=== PATIENT | female | born 1945 | race Caucasian/White ===

== ENCOUNTER → 2019-07-07 12:40 | Outpatient (BNVA) | payer MEDICARE, OTHER, SELFPAY | PROVIDERS: Family Provider Family Medicine; PCP Family Medicine; Visit Provider Urology | DX: N30.10 Interstitial cystitis (chronic) without hematuria (principal) | CPT/HCPCS: 81001 ==

== ENCOUNTER → 2019-07-14 14:01 | Outpatient (BNVA) | payer MEDICARE, OTHER, SELFPAY | PROVIDERS: Family Provider Family Medicine; PCP Family Medicine; Visit Provider Nurse Practitioner Family | DX: N30.10 Interstitial cystitis (chronic) without hematuria (principal) | CPT/HCPCS: 81001; 87086 ==

== ENCOUNTER → 2019-07-21 10:06 | Outpatient (BNVA) | payer MEDICARE, OTHER, SELFPAY | PROVIDERS: Family Provider Family Medicine; PCP Family Medicine; Visit Provider Urology | DX: N30.10 Interstitial cystitis (chronic) without hematuria (principal) | CPT/HCPCS: 81001 ==

== ENCOUNTER 2019-07-28 10:37 | Day surgery (SDC) | payer MEDICARE, OTHER, SELFPAY ==
[2019-07-25 12:03] VITALS: BMI 29.0
[2019-07-28] VITALS (7 sets, daily range): BP systolic 110–150; BP diastolic 60–76; PULSE 56–62; RESP 16–20; TEMP 36.4–36.9; O2SAT 94–98
[2019-07-28] MEDS: sodium chloride 0.9% 1,000 ML 30 ML IV (11:16)
--- NOTE | 2019-07-28 11:22 | ANES.PREANE2 ---
Pre-Anesthetic Assessment Pre-Anesthetic Assessment: Height/Weight: Height 1.73 m Weight 86.636 kg Temp Pulse Resp BP Pulse Ox 98.4 F 57 L 18 139/74 96 07/28/19 10:59 07/28/19 10:59 07/28/19 10:59 07/28/19 10:59 07/28/19 10:59 Preop Diagnosis: Interstitial cystitis Proposed Procedure: Operation Date: 07/28/19 12:00 Proposed Procedures p Cystoscopy N30.10(Not Applicable) - Cristino Puente MD s Bladder Hydrodistention(Not Applicable) - Cristino Puente MD Was Beta Liana taken within 24 hours: Yes Last intake: Intake Last Liquid Date 07/27/19 Last Liquid Time 18:00 Last Solid Date 07/27/19 Last Solid Time 18:00 Social: Social History: No alcohol and No tobacco Exam: Pre-Anes Outpt Exam: alert, oriented x 3, clear to auscultation bilaterally and regular rate & rhythm Airway: Submandibular: WNL Cervical ROM: WNL MP: 2 Dentition: Other (very poor dentation) History/ROS: No significant history except as noted Pulmonary: Pulmonary: Sleep apnea : : None reported Hepatic: Hepatic: None reported GI: GI: None reported Metabolic: Metabolic: Hyperlipidemia Musc/skel: Musc/skel: Lower Back Pain and OA/DJD Neuropsych: Neuropsych: Anxiety and Depression Anesthetic Plan: ASA status: 3 Anesthesia: Anesthesia Evaluation and General Risk of > 500 ml blood loss (7ml/kg in children): No Meds/Allergies Current Medications: Current Medications Generic Name Dose Route Start Last Admin Trade Name Freq PRN Reason Stop Dose Admin Sodium Chloride 1,000 mls @ 30 ml s/hr 07/28/19 09:30 07/28/19 11:16 Sodium Chloride 0.9% IV 07/29/19 09:29 30 mls/hr .Q24H LIO Administration PFSH Anesthesia PFSH: Medical History Abnormal collection of fluid in uterine cavity Chronic interstitial cystitis Other urethral stricture, female Pelvic and perineal pain Sleep apnea Surgical History S/P bladder repair S/P hysterectomy Family History Mother , at age 93 Cancer Breast cancer Colon cancer Father , 45 Cancer Stomach cancer Social History Smoking and tobacco status: never smoked Alcohol intake: never Marital status: Current occupational status: retired Data Anesthesia Cardiac Studies: No Data to Display
--- NOTE | 2019-07-28 12:31 | W.PM.OPSUD ---
Surgery/Procedure H&P Update DATE OF PROCEDURE: July 28, 2019 DATE H&P PERFORMED: 07/21/19 H&P UPDATE INFORMATION: No changes to prior documentation PREOP DIAGNOSIS: Interstitial cystitis PRIMARY INDICATION FOR PROCEDURE: Refractory interstitial cystitis. PLANNED PROCEDURE: Operation Date: 07/28/19 12:00 Proposed Procedures p Cystoscopy N30.10(Not Applicable) - Cristino Puente MD s Bladder Hydrodistention(Not Applicable) - Cristino Puente MD
--- NOTE | 2019-07-28 12:33 | PM.OP ---
Operative Report Date of procedure: July 28, 2019 Pre-op Diagnosis: Interstitial cystitis Post-op diagnosis: same Procedure Done: Cystoscopy, hydrodistention of the bladder Bladder instillation therapy Pathology: none sent Surgeon: Kwame Anesthesia: General Estimated blood loss: Minimal Urine output: Not measured Condition: stable Disposition: PACU Brief History: Mrs. Reich is a very pleasant 73-year-old white female with a longstanding history of interstitial cystitis previously treated at [facility] by Dr. Valdovinos. [place] that hydrodistention was probably the most symptomatically relieving procedure and treatment that she has had. She did see benefit from ELMIRON but she quit it due to hair loss. Trial of bladder instillation therapy was conducted in my office with some improvement but not enough to be satisfied and for that reason she has requested hydrodistention of her bladder. She continues to decline Elmiron. Procedure: After routine preoperative evaluation examination and obtaining of informed consent she was taken to the operating suite on 07/28/2019 where general anesthesia was administered without difficulty after appropriate timeout was performed, SCDs confirmed to be functioning, preoperative antibiotics administered, beta-amirah protocol confirmed. Prepped and draped in usual sterile fashion in dorsolithotomy position pain careful attention to avoiding pressure points. 21 Thai cystoscope with 30 degree lens was introduced to the urethral meatus and advanced into the bladder under videoscopy. Bladder was systematically examined with both 30 and 70 degree lenses. No gross abnormality was identified. Bladder was drained. With a [address] the bladder was hydrodistended to 50 cm of water pressure for 5- 8 minutes. The bladder was then drained and the procedure repeated. Post distention findings: Multiple glomerulations throughout the bladder. There was one area of mild mucosal abrasion that required pinpoint fulguration for hemostasis. This was located near the previous scar on the posterior bladder wall well away from the orifices. Instillation therapy with Solu-Cortef, heparin, Marcaine, lidocaine performed after draining the bladder. Procedure completed. She tolerated procedure well without complications and was awakened in the operating room and returned to recovery in stable condition.
[2019-07-28] MEDS: levofloxacin-dextrose 5 % 500 MG/100 ML PREMIX 100 MG IV (12:35)
[2019-07-28] MEDS: lidocaine 1% INJ 50 mL 30 ML INJECTION (13:04)
[2019-07-28] MEDS: heparin, porcine 1,000 unit/mL INJ 10 mL 10000 UNIT IRRIGATION (13:04)
[2019-07-28] MEDS: triamcinolone 40 mg/mL SDV XX (13:04)
--- NOTE | 2019-07-28 13:27 | SUR.PHASEI ---
1321 PT TO PACU MASK TO FACE , BUT DR ROJAS AT BEDSIDE AND MASK REMOVED SATS 97% ON RA. GOOD RESP EFFORT, PT USING KLEENEX TO BLOW NOSE, NO DISTRESS NOTED.
[2019-07-28] MEDS: TRAMadol 50 mg Tablet PO (14:08)
== END 2019-07-28 14:29 | disposition home or self-care (01) ==
PROVIDERS: Family Provider Family Medicine; PCP Family Medicine; Visit Provider Urology
PROC: 0TJB8ZZ Inspection of Bladder, Via Natural or Artificial Opening Endoscopic (ICD-10-PCS; CPT 52000; principal; 2019-07-28 12:00)
PROC: 0T7B7ZZ Dilation of Bladder, Via Natural or Artificial Opening (ICD-10-PCS; CPT 52260; 2019-07-28 12:00)
DX: N30.10 Interstitial cystitis (chronic) without hematuria (principal); Z79.82 Long term (current) use of aspirin; G47.30 Sleep apnea, unspecified; E78.5 Hyperlipidemia, unspecified; M19.90 Unspecified osteoarthritis, unspecified site
CPT/HCPCS: 52260; 12345; J0330; J1100; J1644; J1956; J2001; J2405; J2704; J3010; J3301; J3490; J7030

== ENCOUNTER 2020-12-31 08:54 | Outpatient (CLI) | payer MEDICARE, OTHER, SELFPAY ==
--- NOTE | 2020-12-31 09:10 | XR_ITS ---
WS: [id number] Chest 2 views, 12/31/2020 Clinical Data: VIRAL ILLNESS Comparison: PA and lateral chest, 12/10/2015. Findings: No nodules, masses or effusions are seen. The heart is normal. The pulmonary vascularity is not increased. No pneumonia or pneumothorax is seen. The aortic arch shows mild tortuosity. XR/XR chest 2V* [id number] Impression: Atherosclerosis.
== END 2020-12-31 08:55 | disposition home or self-care (01) ==
PROVIDERS: PCP Nurse Practitioner Family; Visit Provider Nurse Practitioner Family
DX: B34.9 Viral infection, unspecified (principal); I70.90 Unspecified atherosclerosis
CPT/HCPCS: 71046

== ENCOUNTER 2021-01-10 13:30 | Outpatient (CLI) | payer MEDICARE, OTHER, SELFPAY ==
--- NOTE | 2021-01-10 13:36 | XR_ITS ---
WS: [id number] Chest 2 views, 01/10/2021 Clinical Data: VIRAL ILLNESS Comparison: PA and lateral chest, 12/31/2020. Findings: No nodules, masses or effusions are seen. The heart is normal. The pulmonary vascularity is not increased. No pneumonia or pneumothorax is seen. The aortic arch and descending aorta show minim al calcification and tortuosity. There is a small ring marker overlying the midportion of the chest. There are clips in the upper abdomen from a cholecystectomy. XR/XR chest 2V* [id number] Impression: Atherosclerosis.
== END 2021-01-10 13:31 | disposition home or self-care (01) ==
PROVIDERS: PCP Nurse Practitioner Family; Visit Provider Nurse Practitioner Family
DX: B34.9 Viral infection, unspecified (principal); I70.90 Unspecified atherosclerosis
CPT/HCPCS: 71046

== ENCOUNTER → 2021-07-06 11:45 | Outpatient (BNVA) | payer MEDICARE, OTHER, SELFPAY | PROVIDERS: PCP Nurse Practitioner Family; Visit Provider Family Medicine | DX: G89.29 Other chronic pain (principal); I10 Essential (primary) hypertension; K21.9 Gastro-esophageal reflux disease without esophagitis; M54.9 Dorsalgia, unspecified; R73.9 Hyperglycemia, unspecified; Z12.31 Encounter for screening mammogram for malignant neoplasm of breast; Z12.11 Encounter for screening for malignant neoplasm of colon; N30.10 Interstitial cystitis (chronic) without hematuria; Z80.0 Family history of malignant neoplasm of digestive organs; Z76.89 Persons encountering health services in other specified circumstances | CPT/HCPCS: 80053; 80061; 81003; 82043; 83036; 84443; 85025; 85651 ==

== ENCOUNTER → 2021-08-12 11:21 | Outpatient (BNVA) | payer MEDICARE, OTHER, SELFPAY | PROVIDERS: PCP Nurse Practitioner Family; Visit Provider Surgery | DX: Z20.822 Contact with and (suspected) exposure to COVID-19 (principal); Z11.52 Encounter for screening for COVID-19 | CPT/HCPCS: 87635 ==

== ENCOUNTER 2021-08-17 07:36 | Day surgery (SDC) | payer MEDICARE, OTHER, SELFPAY ==
[2021-08-12 10:02] VITALS: BMI 29.5
--- NOTE | 2021-08-17 08:00 | P.ANESASSM_ITS ---
Pre-Anesthetic Assessment Height/Weight: Height 1.73 m Weight 87.997 kg Preop Diagnosis: diagnostic Operation Date: 08/17/21 09:00 Proposed Procedures p EGD 02590/30193/z80.0(Not Applicable) - Pablo Gracia MD s Colonoscopy(Not Applicable) - Pablo Gracia MD Familial anesthetic complications: None Was Beta Liana taken within 24 hours: N/A Last intake: 08/16/2021 Social No alcohol and No tobacco Exam alert, oriented x 3 and clear to auscultation bilaterally Irregular rate Airway Submandibular: within normal limits Cervical ROM: within normal limits Mallampati: Class III Dentition: chipped Pulmonary Sleep Apnea (Does not use CPAP) CV/HEM Atrial Fibrillation and Hypertension Chronic cystitis Hepatic None reported GI Diverticulitis Metabolic None reported Musc/skel None reported Neuropsych None reported Anesthetic Plan ASA status: 3 (75 year old female with hx of atrial fibrillation, CAYLA non compliant with CPAP, chronic cystitis, and HTN ) Anesthesia: Anesthesia Evaluation, General and MAC Other: I discussed with the patient risks, goals, and benefits of MAC and general anesthesia. We discussed spectrum of MAC anesthesia including conversion to general as well as possibility of recall of intraoperative stimuli including discomfort/pain. Patient agrees to proceed with MAC. Risk of > 500 ml blood loss (7ml/kg in children): No Other Pertinent Information Last dose Apixaban 08/10/2021 per patient. Medications/Allergies Home Medications Medication Instructions Recorded Confirmed Last Taken Type aspirin 81 mg tablet,delayed 81 mg PO DAILY tab 06/19/19 08/12/21 07/26/19 History release (Adult Aspirin Regimen) hydrochlorothiazide 25 mg tablet 25 mg PO QAM 06/19/19 08/12/21 07/28/19 09:00 History cholecalciferol (vitamin D3) 25 1,000 unit PO DAILY 07/21/19 08/12/21 07/26/19 History mcg (1,000 unit) capsule amlodipine 5 mg tablet 5 mg PO DAILY 05/25/20 08/12/21 Unknown History lisinopril 2.5 mg tablet 5 mg PO BID #60 tab 05/25/20 08/12/21 Unknown Rx tramadol 50 mg tablet 50 mg PO Q12H #60 tab 07/06/21 08/12/21 Unknown Rx pravastatin 80 mg tablet 80 mg PO .THREE TIMES WEEKLY #30 07/11/21 08/12/21 Unknown Rx tab apixaban 5 mg tablet (Eliquis) 5 mg PO BID 07/19/21 08/12/21 Unknown History flecainide 50 mg tablet 50 mg PO BID 08/12/21 08/12/21 Unknown History Allergies Allergy/AdvReac Type Severity Reaction Status Date / Time codeine Allergy NA Verified 07/19/21 08:52 [facility] Anesthesia Medical History Atrial fibrillation Chronic interstitial cystitis Dyslipidemia History of diverticulitis of colon HTN (hypertension) Other urethral stricture, female Sleep apnea Surgical History History of colonoscopy 5+yrs History of intestinal surgery 1947 S/P bladder repair S/P cholecystectomy S/P hysterectomy Family History Mother , at age 93 Cancer Breast cancer Colon cancer Father , 45 Cancer Stomach cancer Social History Smoking and tobacco status: never smoked Alcohol intake: never Marital status: / Current occupational status: retired Data Anesthesia Cardiac Studies: Cardiac Event Monitor 05/26/20
[2021-08-17 08:19] VITALS: BP 150/92; PULSE 72; RESP 18; TEMP 36.4; O2SAT 97
[2021-08-17] MEDS: sodium chloride 0.9% 1,000 ML 30 ML IV (08:25)
--- NOTE | 2021-08-17 08:40 | W.PM.OPSFHP ---
Same Day Surgery H&P Indication for Procedure/HPI DATE OF PROCEDURE: August 17, 2021 CHIEF COMPLAINT/INDICATIONFOR SURGICAL PROCEDURE: EGD/colonoscopy PREOP DIAGNOSIS: diagnostic PLANNED PROCEDURE: Operation Date: 08/17/21 09:00 Proposed Procedures p EGD 84014/[id number]/z80.0(Not Applicable) - Pablo Gracia MD s Colonoscopy(Not Applicable) - Pablo Gracia MD Medications/Allergies* Home Medications Medication Instructions Recorded Confirmed Type aspirin 81 mg tablet,delayed 81 mg PO DAILY tab 06/19/19 08/17/21 History release (Adult Aspirin Regimen) hydrochlorothiazide 25 mg tablet 25 mg PO QAM 06/19/19 08/17/21 History cholecalciferol (vitamin D3) 25 1,000 unit PO DAILY 07/21/19 08/17/21 History mcg (1,000 unit) capsule amlodipine 5 mg tablet 5 mg PO DAILY 05/25/20 08/17/21 History apixaban 5 mg tablet (Eliquis) 5 mg PO BID 07/19/21 08/17/21 History flecainide 50 mg tablet 50 mg PO BID 08/12/21 08/17/21 History Allergies/Adverse Reactions Allergy/AdvReac Type Severity Reaction Status Date / Time codeine Allergy NA Verified 07/19/21 08:52 Current Medications: Generic Name Dose Route Start Last Admin Trade Name Freq PRN Reason Stop Dose Admin Sodium Chloride 1,000 mls @ 30 mls/hr 08/17/21 08:00 08/17/21 08:25 Sodium Chloride 0.9% IV 08/18/21 07:59 30 mls/hr .Q24H LIO Administration Pertinent History/Comorbid Conditions* Medical History (Updated 07/19/21 @ 16:22 by Pablo Gracia MD) Atrial fibrillation Chronic interstitial cystitis Dyslipidemia History of diverticulitis of colon HTN (hypertension) Other urethral stricture, female Sleep apnea Surgical History (Updated 07/19/21 @ 09:16 by Pablo Gracia MD) History of colonoscopy 5+yrs History of intestinal surgery 1947 S/P bladder repair S/P cholecystectomy S/P hysterectomy Family History (Updated 07/21/19 @ 10:04 by Ivy Roblero LPN) Father, 45 Mother, at age 93 Stomach cancer Father Colon cancer Mother Breast cancer Mother Cancer Mother Father Social History Smoking and tobacco status: never smoked Alcohol intake: never Marital status: / Current occupational status: retired Pertinent Exam Findings alert, oriented x 3 and regular rate & rhythm Recommendations Surgery/Procedure today Coding Level of Care Code Acute Patented [employer] for Efra Sutton
[2021-08-17 09:04] VITALS: BP 147/64; PULSE 57; RESP 12; TEMP 36.7; O2SAT 96
--- NOTE | 2021-08-17 09:07 | ANE.PACU2 ---
Documented by User: Cristobal Gruber CRNA 08/17/21 09:07 Inpatient post-anesthesia follow up: Airway intact: Yes Vital signs: Temperature 97.5 F Pulse Rate 72 Respiratory Rate 18 Blood Pressure 150/92 Pulse Oximetry 97 Oxygen Delivery Me thod Room Air Oxygen Flow Rate Fraction of Inspir ed Oxygen Hydration adequate: Yes Nausea and vomiting: No Pain level: 1 Mental status: Baseline
[2021-08-17 09:15] VITALS: BP 133/61; PULSE 58; RESP 16; O2SAT 96
[2021-08-17 09:35] VITALS: BP 139/61; PULSE 59; RESP 20; O2SAT 100
--- NOTE | 2021-08-17 09:42 | PC.NURSE ---
pain8/10 rectal tube inserted with return of air noted. pain 4/10 at this time
[2021-08-17] MEDS: ondansetron 2 mg/ML SDV 2 mL 4 MG IVP (09:56)
[2021-08-17 10:00] VITALS: BP 120/59; PULSE 51; RESP 18; TEMP 36.7; O2SAT 95
== END 2021-08-17 10:22 | disposition home or self-care (01) ==
PROVIDERS: PCP Family Medicine; Visit Provider Surgery
PROC: 0DJ08ZZ Inspection of Upper Intestinal Tract, Via Natural or Artificial Opening Endoscopic (ICD-10-PCS; CPT 43235; principal; 2021-08-17 09:00)
PROC: 0DJD8ZZ Inspection of Lower Intestinal Tract, Via Natural or Artificial Opening Endoscopic (ICD-10-PCS; CPT 45378; 2021-08-17 09:00)
DX: K44.9 Diaphragmatic hernia without obstruction or gangrene (principal); D12.2 Benign neoplasm of ascending colon; K57.30 Diverticulosis of large intestine without perforation or abscess without bleeding; K64.8 Other hemorrhoids; Z80.0 Family history of malignant neoplasm of digestive organs; Z79.82 Long term (current) use of aspirin; I48.91 Unspecified atrial fibrillation; E78.5 Hyperlipidemia, unspecified; I10 Essential (primary) hypertension; G47.30 Sleep apnea, unspecified
CPT/HCPCS: 43235; 45380; 88305; 96374; J2405; J2704; J7030

== ENCOUNTER → 2021-10-24 13:11 | Outpatient (BNVA) | payer MEDICARE, OTHER, SELFPAY | PROVIDERS: PCP Family Medicine; Visit Provider Surgery | DX: Z09 Encounter for follow-up examination after completed treatment for conditions other than malignant neoplasm (principal) | CPT/HCPCS: 99212 ==

== ENCOUNTER → 2022-03-07 09:47 | Outpatient (BNVA) | payer MEDICARE, OTHER, SELFPAY | PROVIDERS: PCP Family Medicine; Visit Provider Family Medicine | DX: G89.29 Other chronic pain (principal); R51.9 Headache, unspecified; I10 Essential (primary) hypertension; Z09 Encounter for follow-up examination after completed treatment for conditions other than malignant neoplasm; M54.9 Dorsalgia, unspecified; N30.10 Interstitial cystitis (chronic) without hematuria | CPT/HCPCS: 80053; 80061; 84443; 85025; 85651; 86140 ==

== ENCOUNTER 2022-04-06 09:12 | Outpatient (CLI) | payer MEDICARE, OTHER, SELFPAY ==
--- NOTE | 2022-04-06 09:30 | CT_ITS ---
WS: [id number] CT HEAD NONCONTRAST HISTORY: Worsening headaches TECHNIQUE: Contiguous axial imaging performed through the brain in 2.5 mm imaging. Bone and soft tiss ue windows. Sagittal and coronal reformats reviewed. All CT scans at [facility] use at least one of these dose optimization techniques: automated exposure control; mA and/or kV adjustment per pa tient size (includes targeted exams where dose is matched to clinical indication); or iterative recon struction. DLP: 1065.15 mGy.cm COMPARISON: 07/23/2009 No acute intracranial hemorrhage, midline shift or mass effect. Mild atrophy and mild diffuse small vessel ischemic disease. No prior infarct. Ventricles: Normal size with no hydrocephalus. Seen on the axial imaging through the brain stem is soft tissue crowding of the foramen magnum. The m edulla is being surrounded by the cerebellar tonsils and there is very little CSF identified at the f oramen magnum. On the sagittal imaging there is inferior displacement of the cerebellar tonsils. Paranasal sinuses: Mild mucoperiosteal thickening in the posterior RIGHT ethmoid air cell. Mastoid air cells: Well pneumatized. Calvarium and scalp: Skull is intact with no soft tissue edema or swelling. CT/CT head wo con* [id number] IMPRESSION: 1. Findings are very suspicious for Chiari I malformation. To better describe the inferior descent of the cerebellar tonsils consider MRI brain evaluation. 2. No hydrocephalus. 3. Mild atrophy and mild small vessel ischemic disease.
== END 2022-04-06 09:13 | disposition home or self-care (01) ==
LOC: RAD 09:12
PROVIDERS: PCP Family Medicine; Visit Provider Family Medicine
DX: G44.89 Other headache syndrome (principal); G31.89 Other specified degenerative diseases of nervous system; I67.82 Cerebral ischemia
CPT/HCPCS: 70450

== ENCOUNTER 2022-05-18 12:48 | Outpatient (CLI) | payer MEDICARE, OTHER, SELFPAY ==
--- NOTE | 2022-05-18 13:00 | MR_ITS ---
WS: [id number] MRI LUMBAR SPINE NONCONTRAST TECHNIQUE: Sagittal T1, T2 and STIR imaging. Axial T1 and T2 imaging. CLINICAL INFORMATION: Chiari malformation Type I COMPARISON: None. FINDINGS: Mild lumbar curve. No acute compression. Mild/moderate central canal stenosis L2-L3, L3-L4, and moder ate to severe L4-L5. L1-L2: Mild annular bulging. Mild facet arthropathy. Spinal canal and foramen are patent. L2-L3: Shallow RIGHT pericentral protrusion. Mild to moderate central canal stenosis. Impingement tra versing RIGHT L3 nerve root. Mild RIGHT and no significant LEFT foraminal narrowing. Moderate facet a rthropathy. L3-L4: Mild annular bulging. Slight effacement of ventral thecal sac. Moderate central canal stenosis . Impingement traversing L4 nerve roots. Moderate facet arthropathy. Mild LEFT greater than RIGHT for aminal narrowing. L4-L5: Annular bulging L4-L5 impinges the traversing LEFT greater than RIGHT L5 nerve roots. Moderate to severe central canal stenosis. Impingement traversing LEFT L5 nerve root. Moderate facet arthropa thy. Ligamentum flavum hypertrophy. Mild LEFT foraminal narrowing. L5-S1: Mild annular bulging with mild central canal stenosis. Slight impingement traversing S1 nerve roots. Advanced facet arthropathy. Foramen are patent. Bilateral renal cysts. Normal caliber abdominal aorta. Small disc protrusions at C5-C6 and C6-C7 with slight indentation on cervical cord with mild central canal stenosis. Visualized pelvic bony structures: Normal. Paravertebral soft tissues: Normal. MR/MR lumbar spine wo con* [id number] IMPRESSION: 1. Moderate to severe central canal stenosis L4-L5 impinges the traversing LEF T L5 nerve root in the subarticular recess. Mild LEFT L4-L5 foraminal narrowing . 2. Mild central canal stenosis L2-L3 with impingement on the RIGHT subarticula r recess and traversing RIGHT L3 nerve root. 3. Moderate central canal stenosis L3-L4. Mild central canal stenosis L5-S1. 4. Moderate to advanced facet arthropathy L4-L5 and advanced L5-S1.
--- NOTE | 2022-05-18 13:45 | MR_ITS ---
WS: [id number] MRI HEAD WITHOUT CONTRAST TECHNIQUE: Sagittal T1, T2 axial, T2 axial FLAIR, axial and coronal T1 images, axial susceptibility w eighted imaging, axial diffusion weighted images, and coronal T2 images were obtained. CLINICAL INFORMATION: Chiari Malformation Type I COMPARISON: CT April 06, 2022 FINDINGS: Chiari I malformation with cerebellar tonsils approximately 8.5 mm below the foramen magnum. Mild scroll saw operator wding at the foramen magnum. Brain stem signal is normal. No hydrocephalus. Findings are unchanged si nce the prior head CT. No evidence of restricted diffusion to suggest acute ischemia. Ventricular system and basal cisterns are patent. Moderate small vessel changes. Moderate parenchymal volume loss. Normal posterior fossa. Normal vascular flow voids at the skull base. No extra-axial fluid collections. No evidence of mass o r mass effect. Paranasal sinuses and mastoid air cells are well aerated. No hemosiderin on the susceptibly weighted images. MR/MR head wo con* [id number] IMPRESSION: 1. Chiari I malformation with cerebellar tonsils 8.5 mm below the foramen magn um. Mild crowding of the foramen magnum. Normal 4th ventricle. No hydrocephalus . 2. Brain stem signal is normal. 3. Recommend cervical spine MRI to exclude cervical cord syrinx. No visualized syrinx at the cervicomedullary junction. 4. Moderate small vessel changes with moderate parenchymal volume loss. 5. No other acute findings.
== END 2022-05-18 12:49 | disposition home or self-care (01) ==
PROVIDERS: PCP Family Medicine; Visit Provider Family Medicine
DX: G44.229 Chronic tension-type headache, not intractable (principal); G93.5 Compression of brain; M48.061 Spinal stenosis, lumbar region without neurogenic claudication; M48.07 Spinal stenosis, lumbosacral region; M47.816 Spondylosis without myelopathy or radiculopathy, lumbar region; M47.817 Spondylosis without myelopathy or radiculopathy, lumbosacral region
CPT/HCPCS: 70551; 72148

== ENCOUNTER 2022-05-19 12:54 | Outpatient (CLI) | payer MEDICARE, OTHER, SELFPAY ==
--- NOTE | 2022-05-19 13:00 | MR_ITS ---
WS: [id number] MRI THORACIC SPINE noncontrast. HISTORY: Chiari malformation Type I COMPARISON: None available. TECHNIQUE: Multiplanar sequences are performed in sagittal and axial planes. Moderate increase in the thoracic kyphosis. Mild disc space narrowing throughout the thoracic spine. T8 and T10 vertebral body hemangiomas. Signal within the cord is normal. No cord enlargement or atrop hy. No syrinx. Cord tapers normally at T12-L1. T1-2: Normal. T2-3: Normal. T3-4: Normal. T4-5: Normal. T5-6: Normal. T6-7: Mild facet joint arthritis and ligamentum flavum hypertrophy. T7-8: Mild ligamentum flavum hypertrophy. Very slight encroachment into the posterior lateral thecal sac. T8-9: Bilateral facet joint arthritis, LEFT greater than RIGHT. T9-10: Bilateral facet joint arthritis, LEFT greater than RIGHT. Mild encroachment into the LEFT for amen. T10-11: Mild bilateral facet joint arthritis. T11-12: Mild facet joint arthritis. Paravertebral soft tissues are normal. MR/MR thoracic spin wo con* [id number] IMPRESSION: 1. No thoracic cord syrinx or mass. 2. No significant, high-grade stenosis. 3. Facet joint arthritis beginning at T6-7 through T11-12.
--- NOTE | 2022-05-19 13:45 | MR_ITS ---
WS: [id number] MRI CERVICAL SPINE NONCONTRAST HISTORY: Chiari malformation Type I, neck and back pain and headaches for one year. No injury. COMPARISON: Prior MRI head 05/18/2022 Technique: Multiplanar, multisequence noncontrast imaging of the cervical spine. Mild increase in the cervical lordosis. No fractures. Mild disc space narrowing. Signal within the cord is normal. There is no syrinx identified. No cord atrophy or enlargement. Agai n noted is the Chiari malformation with the cerebellar tonsils extending 8 mm below the foramen magnu m. There is crowding of the foramen magnum. Fourth ventricle visualized is normal. C2-C3: Central disc protrusion and moderate RIGHT foraminal stenosis. C3-C4: Small central disc protrusion and mild facet joint arthritis. Mild RIGHT foraminal stenosis. C4-C5: Diffuse osteophytic ridging with moderate ligamentum flavum and facet arthritis. No significan t stenosis. C5-C6: Mild osteophytic ridging with central disc protrusion and facet arthritis. Mild central and bi lateral foraminal stenosis. C6-C7: Mild annular disc bulging and facet joint arthritis. Very minimal narrowing of the central can al. C7-T1: Very mild foraminal stenosis. Paraspinal soft tissue are normal. MR/MR cervical spin wo con* [id number] IMPRESSION: 1. Chiari 1 malformation. Cerebellar tonsils extend 8 mm below the foramen mag num. 2. No cervical cord syrinx. 3. Small central disc protrusion and RIGHT foraminal stenosis at C3-4. 4. Mild central and bilateral foraminal stenosis at C5-6. 5. Mild central stenosis at C6-7.
== END 2022-05-19 12:55 | disposition home or self-care (01) ==
LOC: RAD 12:54
PROVIDERS: PCP Family Medicine; Visit Provider Family Medicine
DX: G44.229 Chronic tension-type headache, not intractable (principal); G93.5 Compression of brain; M47.894 Other spondylosis, thoracic region; M50.21 Other cervical disc displacement, high cervical region; M48.02 Spinal stenosis, cervical region; M48.061 Spinal stenosis, lumbar region without neurogenic claudication; M48.07 Spinal stenosis, lumbosacral region; M47.816 Spondylosis without myelopathy or radiculopathy, lumbar region; M47.817 Spondylosis without myelopathy or radiculopathy, lumbosacral region
CPT/HCPCS: 70551; 72141; 72146; 72148

== ENCOUNTER 2022-10-18 11:18 | Outpatient (CLI) | payer MEDICARE, OTHER, SELFPAY ==
--- NOTE | 2022-10-18 12:28 | XRR_ITS ---
PROCEDURE INFORMATION: Exam: XR Left Tibia and Fibula Exam date and time: 10/18/2022 12:42 PM Age: 76 years old Clinical indication: Pain; Lower leg; Left; Additional info: Pain, previous foreign body TECHNIQUE: Imaging protocol: Radiologic exam of the left tibia and fibula. Views: 2 views. COMPARISON: US soft tissue/extremity [id number] 10/15/2017 8:31 AM FINDINGS: Bones/joints: No fracture. No dislocation. No periosteal reaction or bone destruction. Soft tissues: No soft tissue radiopaque foreign body. There is increased density and stranding in the subcutaneous fat of the calf which can be due to edema. Vasculature: There is a calcification in the lateral superficial soft tissue of the mid calf with the appearance favoring a calcified phlebolith. XR/XR tibia fibula LT 2V [id number] IMPRESSION: No acute osseous abnormality.
== END 2022-10-18 11:19 | disposition home or self-care (01) ==
PROVIDERS: PCP Family Medicine; Visit Provider Family Medicine
DX: M79.662 Pain in left lower leg (principal); S80.852A Superficial foreign body, left lower leg, initial encounter; X58.XXXA Exposure to other specified factors, initial encounter
CPT/HCPCS: 73590

== ENCOUNTER 2022-12-26 12:23 | Outpatient (CLI) | payer MEDICARE, OTHER, SELFPAY ==
--- NOTE | 2022-12-26 12:30 | CTR_ITS ---
PROCEDURE INFORMATION: Exam: CT Abdomen And Pelvis Without Contrast Exam date and time: 12/26/2022 12:35 PM Age: 77 years old Clinical indication: Other: RT side flank pain; Prior surgery; Surgery date: 6+ months; Surgery type: Gb, colon; Additional info: Concern for kidney stone, renal stone protocol TECHNIQUE: Imaging protocol: Computed tomography of the abdomen and pelvis without contrast. Radiation optimization: All CT scans at this facility use at least one of these dose optimization techniques: automated exposure control; mA and/or kV adjustment per patient size (includes targeted exams where dose is matched to clinical indication); or iterative reconstruction. REPORTING DATA: Count of CT and Cardiac NM exams in prior 12 months: This patient has received [address] and 0 known cardiac nuclear medicine studies in the 12 months prior to the current study. COMPARISON: 1. CT abdomen pelvis wo con [id number] 12/06/2017 10:00 AM 2. MR lumbar spine wo con* [id number] 05/18/2022 1:52 PM RADIATION DOSE METRICS: Total DLP (mGy-cm): 671.26 FINDINGS: Lungs: Calcified granulomata at the lung bases. Diaphragm: Small hiatal hernia. Liver: Normal without focal lesions. Gallbladder and bile ducts: Prior cholecystectomy without biliary ductal dilatation. Pancreas: Normal without ductal dilatation. Spleen: Normal. Adrenal glands: 1.5 cm left adrenal adenoma. Normal right adrenal gland. Kidneys and ureters: 1.6 cm fluid density right renal cyst. Kidneys and ureters are otherwise unremarkable. Stomach and bowel: Unremarkable. No obstruction. No mucosal thickening. Appendix: Appendix not visualized but no evidence of appendicitis. Intraperitoneal space: No free air, free fluid, or well-organized fluid collection. Stable 2.2 cm fat containing rim calcification of the left anterior abdomen. Vasculature: Mild systemic atherosclerotic calcification without aortic aneurysm. Lymph nodes: No enlarged lymph nodes. Urinary bladder: Urinary bladder is unremarkable. Reproductive: The uterus is surgically absent. Bones/joints: No acute fracture. Degenerative changes along the spine. Soft tissues: Unremarkable. CT/CT kidney stone [id number] IMPRESSION: 1. No calcified urolithiasis or obstructive uropathy. 2. Chronic and incidental findings as above, to include atherosclerosis and left adrenal adenoma. COMMENTS: 1. Consistent with the [employer]'s Incidental Findings Committee white paper (J Am Ajith Radiol 2017): For any incidental adrenal lesion greater than or equal to 1 cm but less than or equal to 4 cm classified in this report as benign, likely benign, or containing fat (including classification as an adenoma or myelolipoma), no follow-up imaging is recommended per consensus recommendations based on imaging criteria. Further lab evaluation could be pursued if warranted based on clinical findings. 2. Consistent with the [employer]'s Incidental Findings Committee white paper (J Am Ajith Radiol 2018): Any incidental renal lesion less than 1 cm or classified as too small to characterize, or any incidental cystic renal lesion characterized as simple-appearing, is likely benign. No follow-up imaging is recommended for these lesions per consensus recommendations based on imaging criteria.
== END 2022-12-26 12:24 | disposition home or self-care (01) ==
PROVIDERS: PCP Family Medicine; Visit Provider Family Medicine
DX: N39.0 Urinary tract infection, site not specified (principal); R10.9 Unspecified abdominal pain; R31.9 Hematuria, unspecified; Z98.890 Other specified postprocedural states
CPT/HCPCS: 74176; 81000

== ENCOUNTER → 2023-01-26 08:19 | Outpatient (BNVA) | payer MEDICARE, OTHER, SELFPAY | PROVIDERS: PCP Family Medicine; Visit Provider Surgery | DX: M54.16 Radiculopathy, lumbar region (principal) | CPT/HCPCS: 99204; 99214 ==

== ENCOUNTER → 2024-01-15 09:37 | Outpatient (BNVA) | payer MEDICARE, OTHER, SELFPAY | PROVIDERS: PCP Family Medicine; Visit Provider Family Medicine | DX: I10 Essential (primary) hypertension (principal); E55.9 Vitamin D deficiency, unspecified; R10.9 Unspecified abdominal pain; N30.10 Interstitial cystitis (chronic) without hematuria; I48.91 Unspecified atrial fibrillation; R79.89 Other specified abnormal findings of blood chemistry; R30.0 Dysuria | CPT/HCPCS: 80053; 80061; 81000; 82306; 82607; 84443; 85025; 85651; 86140 ==

== ENCOUNTER 2024-04-03 10:09 | Outpatient (CLI) | payer MEDICARE, OTHER, SELFPAY ==
--- NOTE | 2024-04-03 10:12 | CTR_ITS ---
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 Radiation optimization: All CT scans at this facility use at least one of these dose optimization techniques: automated exposure control; mA and/or kV adjustment per patient size (includes targeted exams where dose is matched to clinical indication); or iterative reconstruction. COMPARISON: CT kidney stone [id number] 12/26/2022 12:35 PM RADIATION DOSE METRICS: Total DLP (mGy-cm): 656.53 FINDINGS: Liver: Normal. No mass. Gallbladder and biliary ducts: Cholecystectomy. Pancreas: Normal. No ductal dilation. Spleen: Normal. No splenomegaly. Adrenal glands: Normal. No mass. Kidneys and ureters: Normal. No hydronephrosis. Stomach and bowel: Unremarkable. No obstruction. No mucosal thickening. Appendix: No evidence of appendicitis. Intraperitoneal space: Unremarkable. No free air. No significant fluid collection. Vasculature: Unremarkable. No abdominal aortic aneurysm. Lymph nodes: Unremarkable. No enlarged lymph nodes. Urinary bladder: Unremarkable as visualized. Reproductive: Unremarkable as visualized. Bones/joints: Unremarkable. No acute fracture. Soft tissues: Unremarkable. CT/CT abdomen pelvis con [id number] IMPRESSION: No acute findings.
== END 2024-04-03 10:10 | disposition home or self-care (01) ==
LOC: RAD 10:11
PROVIDERS: PCP Family Medicine; Visit Provider Urology
DX: N30.10 Interstitial cystitis (chronic) without hematuria (principal); Z90.49 Acquired absence of other specified parts of digestive tract
CPT/HCPCS: 74176

== ENCOUNTER → 2024-08-22 08:47 | Outpatient (BNVA) | payer MEDICARE, OTHER, SELFPAY | PROVIDERS: PCP Family Medicine; Visit Provider Family Medicine | DX: I10 Essential (primary) hypertension (principal) | CPT/HCPCS: 80053; 80061; 85025 ==

== ENCOUNTER → 2025-01-06 09:56 | Outpatient (BNVA) | payer MEDICARE, OTHER, SELFPAY | PROVIDERS: PCP Family Medicine; Visit Provider Family Medicine | DX: R30.0 Dysuria (principal) | CPT/HCPCS: 81000; 87086 ==

== ENCOUNTER → 2025-01-08 13:31 | Outpatient (BNVA) | payer MEDICARE, OTHER, SELFPAY | PROVIDERS: PCP Family Medicine; Visit Provider Family Medicine | DX: R30.0 Dysuria (principal) | CPT/HCPCS: 81000; 87086 ==

== ENCOUNTER → 2025-02-06 12:22 | Outpatient (BNVA) | payer MEDICARE, OTHER, SELFPAY | PROVIDERS: PCP Family Medicine; Visit Provider Emergency Medicine | DX: M25.512 Pain in left shoulder (principal); M11.212 Other chondrocalcinosis, left shoulder | CPT/HCPCS: 73030 ==

== ENCOUNTER 2025-02-10 08:51 | Outpatient (CLI) | payer MEDICARE, OTHER, SELFPAY ==
--- NOTE | 2025-02-10 09:00 | CT_ITS ---
WS: [id number] CT HEAD NONCONTRAST HISTORY: closed head injury, on apixaban TECHNIQUE: Contiguous axial imaging performed through the brain. Bone and soft tissue windows. Sagittal and coronal reformats reviewed. All CT scans at [facility] [place] use at least one of these dose optimization techniques: automated exposure control; mA and/or kV adjustment per patient size (includes targeted exams where dose is matched to clinical indication); or iterative reconstruction. DLP: 1056.74 mGy.cm COMPARISON: 04/06/2022, MRI C-spine 05/19/2022 No acute intracranial hemorrhage, midline shift or mass effect. Very mild atrophy and small vessel disease. Reidentified is the mild Chiari I malformation. There is no hydrocephalus. Ventricles: Normal size with no hydrocephalus. Paranasal sinuses: As visualized are clear. Mastoid air cells: Well pneumatized. Calvarium and scalp: Skull is intact with no soft tissue edema or swelling. CT/CT head wo con* [id number] IMPRESSION: 1. No acute or subacute intracranial hemorrhage. 2. Very mild cerebral and cerebellar atrophy and small vessel disease. 3. Stable Chiari I malformation. 4. No skull fracture.
== END 2025-02-10 08:52 | disposition home or self-care (01) ==
LOC: RAD 08:55
PROVIDERS: PCP Family Medicine; Visit Provider Emergency Medicine
DX: S09.90XA Unspecified injury of head, initial encounter (principal); G93.5 Compression of brain; I67.89 Other cerebrovascular disease; X58.XXXA Exposure to other specified factors, initial encounter; Z79.01 Long term (current) use of anticoagulants
CPT/HCPCS: 70450

== ENCOUNTER → 2025-03-02 13:27 | Outpatient (BNVA) | payer MEDICARE, OTHER, SELFPAY | PROVIDERS: PCP Family Medicine; Visit Provider Family Medicine | DX: R30.0 Dysuria (principal) | CPT/HCPCS: 81000; 87086 ==

== ENCOUNTER → 2025-03-10 10:03 | Outpatient (BNVA) | payer MEDICARE, OTHER, SELFPAY | PROVIDERS: PCP Family Medicine; Visit Provider Orthopaedic Surgery | DX: M25.512 Pain in left shoulder (principal); G89.29 Other chronic pain | CPT/HCPCS: 99204 ==

== ENCOUNTER → 2025-06-05 13:59 | Outpatient (BNVA) | payer MEDICARE, OTHER, SELFPAY | PROVIDERS: Family Provider Family Medicine; PCP Family Medicine; Visit Provider Emergency Medicine | DX: J06.9 Acute upper respiratory infection, unspecified (principal) | CPT/HCPCS: 87400; 87426 ==